=== PATIENT | female | born 1990 | race Two or more races ===

== ENCOUNTER 2019-02-26 07:17 | Inpatient (IN) | payer BC ==
[2019-02-26] MEDS ORDERED: MISOPROSTOL 200 MCG TAB PR ×2 (08:30→22:00)
[2019-02-26] MEDS ORDERED: OXYTOCIN 30 UNITS/LR 500 ML IV ×3 (08:30→22:00)
[2019-02-26] MEDS ORDERED: LIDOCAINE 1% (MPF) 30 ML INJ INJ (08:30)
[2019-02-26] MEDS ORDERED: CARBOPROST 250 MCG INJ IM ×2 (08:30→22:00)
[2019-02-26] MEDS ORDERED: BUTORPHANOL 2 MG INJ IV (08:30)
[2019-02-26] MEDS ORDERED: METHYLERGONOVINE 0.2 MG INJ IM ×2 (08:30→22:00)
[2019-02-26] MEDS: LACTATED RINGER'S 1,000 ML IV ×3 (08:48→20:32)
[2019-02-26] MEDS: OXYTOCIN 30 UNITS/LR 500 ML IV ×2 (08:49→22:25)
[2019-02-26 08:54] LABS: ADD MAN DIFF? NO
[2019-02-26 09:04] LABS: WHITE BLOOD COUNT 7.7 10^3/ul (4.8-10.8)
[2019-02-26 09:04] LABS: BASOPHILS % 0.4 % (0.0-2.0); EOSINOPHILS % 0.5 % (0.0-7.0); HEMATOCRIT 33.4 % (37.0-47.0); HEMOGLOBIN 10.8 g/dl (12.0-16.0); LYMPHOCYTES # 1.4 10^3/ul (0.8-2.9); LYMPHOCYTES % 17.8 % (15.0-51.0); MEAN CORPUSCULAR HEMOGLOBIN 25.7 pg (29.0-33.0); MEAN CORPUSCULAR HGB CONC 32.3 g/dl (32.0-37.0); MEAN CORPUSCULAR VOLUME 79.5 fl (82.0-101.0); MONOCYTE # 0.6 10^3/ul (0.3-0.9); MONOCYTES % 7.4 % (0.0-11.0); NEUTROPHIL # 5.6 10^3/ul (1.6-7.5); NEUTROPHILS % 73.4 % (39.0-77.0); PLATELET COUNT 151 10^3/UL (140-415); RED CELL DISTRIBUTION WIDTH 14.6 % (11.5-14.5)
[2019-02-26 09:20] LABS: PROTIME 12.3 Sec (11.9-14.9)
[2019-02-26 09:21] LABS: PARTIAL THROMBOPLASTIN TIME 24.5 Sec (23.0-35.0)
[2019-02-26 09:55] LABS: HEPATITIS B SURFACE ANTIGEN NEGATIVE (NEGATIVE)
[2019-02-26] MEDS ORDERED: FENTAnyl 2MCG/ML-ROPIV 0.2% 100 ML (13:25)
[2019-02-26] MEDS ORDERED: NALOXONE (0.4 MG/ML) INJ IV (13:30)
[2019-02-26] MEDS ORDERED: DIPHENHYDRAMINE 50 MG INJ IV (13:30)
[2019-02-26] MEDS ORDERED: ONDANSETRON 4 MG INJ IV (13:30)
[2019-02-26 18:12] LABS: RAPID PLASMA REAGIN NONREACTIVE (NR)
[2019-02-26] MEDS: FENTAnyl 2MCG/ML-ROPIV 0.2% 100 ML BAG EPI (19:58)
[2019-02-26] MEDS ORDERED: NACL 0.9% 3 ML SYG IV (22:00)
[2019-02-26] MEDS ORDERED: HYDROCODONE/APAP (5/325) TAB PO ×2 (22:00)
[2019-02-27] MEDS: OXYTOCIN 30 UNITS/LR 500 ML IV (02:41)
[2019-02-27] MEDS: IBUPROFEN 600 MG TAB PO ×4 (04:17→23:47)
[2019-02-27 08:12] LABS: ADD MAN DIFF? NO
[2019-02-27 08:20] LABS: WHITE BLOOD COUNT 10.7 10^3/ul (4.8-10.8)
[2019-02-27 08:20] LABS: BASOPHILS % 0.4 % (0.0-2.0); EOSINOPHILS % 0.3 % (0.0-7.0); HEMATOCRIT 32.5 % (37.0-47.0); HEMOGLOBIN 10.5 g/dl (12.0-16.0); LYMPHOCYTES # 1.4 10^3/ul (0.8-2.9); LYMPHOCYTES % 13.4 % (15.0-51.0); MEAN CORPUSCULAR HEMOGLOBIN 25.8 pg (29.0-33.0); MEAN CORPUSCULAR HGB CONC 32.3 g/dl (32.0-37.0); MEAN CORPUSCULAR VOLUME 79.9 fl (82.0-101.0); MEAN PLATELET VOLUME 10.9 fl (7.4-10.4); MONOCYTE # 0.8 10^3/ul (0.3-0.9); MONOCYTES % 7.7 % (0.0-11.0); NEUTROPHIL # 8.3 10^3/ul (1.6-7.5); NEUTROPHILS % 77.6 % (39.0-77.0); PLATELET COUNT 138 10^3/UL (140-415); RED BLOOD COUNT 4.07 10^6/ul (4.20-5.40); RED CELL DISTRIBUTION WIDTH 14.6 % (11.5-14.5)
[2019-02-27] MEDS: SENNA/DOCUSATE NA (8.6MG/50MG) TAB PO ×2 (09:26→20:35)
[2019-02-27] MEDS: WITCH HAZEL/GLYCERIN PAD PR (11:58)
[2019-02-27] MEDS: LANOLIN HPA 1 PKT TOP (11:59)
[2019-02-27] MEDS: LACTATED RINGER'S 1,000 ML IV ×3 (12:03→21:20)
[2019-02-27] MEDS: BENZOCAINE 20% 56 ML SPRAY TOP (14:29)
[2019-02-28] MEDS: LACTATED RINGER'S 1,000 ML IV ×3 (00:24→08:24)
[2019-02-28] MEDS: IBUPROFEN 600 MG TAB PO ×4 (05:56→12:14)
[2019-02-28] MEDS: SENNA/DOCUSATE NA (8.6MG/50MG) TAB PO (09:04)
[2019-02-28] MEDS: WITCH HAZEL/GLYCERIN PAD PR (12:14)
[2019-02-28] MEDS: BENZOCAINE 20% 56 ML SPRAY TOP (12:14)
== END 2019-02-28 13:35 | disposition home or self-care (01) | DRG 807 ==
LOC: L-D 07:17 → PP1 02-27 00:03
PROVIDERS: Obstetrics & Gynecology
PROC: 10E0XZZ Delivery of Products of Conception, External Approach (ICD-10-PCS; principal; 2019-02-26 07:00)
PROC: 10907ZC Drainage of Amniotic Fluid, Therapeutic from Products of Conception, Via Natural or Artificial Opening (ICD-10-PCS; 2019-02-26 07:00)
PROC: 0HQ9XZZ Repair Perineum Skin, External Approach (ICD-10-PCS; 2019-02-26 07:00)
DX: O99.214 Obesity complicating childbirth (principal); Z37.0 Single live birth; E66.9 Obesity, unspecified; O70.0 First degree perineal laceration during delivery; Z3A.40 40 weeks gestation of pregnancy
CPT/HCPCS: 62322; 85025; 85610; 85730; 86592; 86850; 86900; 86901; 87340